=== PATIENT | male | born 1975 | race Caucasian/White ===

== ENCOUNTER → 2020-07-08 13:36 | Outpatient (CLI) | payer BC, SELFPAY ==
[2020-07-09 13:19] LABS: COVID19 Sendout Not Detected (Not Detect)
== END ==
PROVIDERS: Visit Provider Nurse Practitioner
DX: Z11.59 Encounter for screening for other viral diseases (principal)
CPT/HCPCS: 87635

== ENCOUNTER 2020-07-11 10:42 | Day surgery (SDC) | payer BC, SELFPAY ==
[2020-07-04 12:59] VITALS: BMI 35.5
[2020-07-11] VITALS (14 sets, daily range): BP systolic 124–145; BP diastolic 61–89; PULSE 80–104; RESP 12–20; TEMP 36.1–37.1; O2SAT 91–97; BMI 35.2
--- NOTE | 2020-07-11 | DI.RAD.S_ITS ---
PROCEDURE: XR CERVICAL SPINE 2V OR 3V INDICATIONS: C5-6 ACDF TECHNIQUE: Fluoroscopic images were obtained during an operative procedure and submitted for interpretation following the completion of the procedure. COMPARISON: [facility] [place], CR, XR CERVICAL SPINE 2 OR 3 VIEWS, 03/12/2020, 14:57. [facility], MR, MR CERVICAL SPINE WITHOUT CONTRAST, 03/29/2020, 11:30. FINDINGS: These fluoroscopic images were performed for intraoperative localization. On these images, anterior fixation hardware is seen at C5-C6. Please correlate with intraoperative findings. IMPRESSION: Normal intraoperative examination. Dictated by: Palomo Bentley M.D. on 07/11/2020 at 14:07 Approved by: Palomo Bentley M.D. on 07/11/2020 at 14:08
[2020-07-11] MEDS: ACETAMINOPHEN 325 MG TABLET 975 MG PO (11:29)
[2020-07-11] MEDS: LACTATED RINGERS 1,000 ML 42 ML IV ×2 (11:31→14:17)
[2020-07-11] MEDS: CEFAZOLIN 2 GM/100 ML FROZ.PIGGY IV (12:48)
--- NOTE | 2020-07-11 13:12 | SUR.OPER ---
Supine on padded OR bed, head on pillow, shoulders taped down to bed bilaterally by PA, bilateral arms padded and tucked at side, legs uncrossed, safety belt at thigh, tape over blanket over lower legs .
--- NOTE | 2020-07-11 14:36 | P.OP_ITS ---
Operative Date/Time/Diagnoses Date of procedure: 07/11/20 Time of procedure: 13:11 Pre-op diagnosis: 1. C5-6 spinal stenosis 2. 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 C5-6 anterior cervical diskectomy and fusion 2. C5-6 anterior interbody cage placement 3. C5-6 anterior instrumentation with plate and screw placement in C5 and C6 vertebrae 4. Utilization of microsurgical technique and operating microscope Same procedure as scheduled: Yes Indications: Patient has been having chronic neck pain and worsening cervical radiculopathy. Patient failed multiple conservative management with worsening pain weakness and numbness in her upper extremity. Patient has been having difficulty performing activity of daily living. After discussing risks benefits of treatment options, patient elected proceed with surgery. Surgeon: Floresita Jc Barrel Maker: Tracy Jones Click Yes if Unassisted: No Anesthesia Type: General Operative Notes Closure Type: primary Specimen(s): none sent Prosthetic devices, grafts, tissues, transplants, or devices: Globus extend plate, PEEK cage Estimated Blood Loss (mL): 20 Blood products transfused: none Procedure in detail: Patient was seen in the preoperative area. Risks and benefits of the surgery was discussed with the patient. Informed consent was obtained from the patient and placed in the chart. Surgical site was marked. Patient was taken to the operative room. General anesthesia was administered. Prophylactic antibiotic was given to the patient less than 30 min before the incision was made. Patient was placed into a supine position on a radiolucent table. Patient's shoulders were taped down to allow proper C-arm imaging. Anterior cervical area was prepped and draped in a sterile fashion. Time-out was performed at this time. Using lateral C-arm imaging, the level between C5 and C6 was identified and marked on patient's neck. A oblique incision from midline towards medial border of sternocleidomastoid muscle was made. The platysma muscle was incised in line with skin incision. Metzenbaum scissor was used to develop the plane between the medial border of sternocleidomastoid d and the strap muscles medially. The carotid sheath and its contents were identified and protected behind the hand- held retractor during the entire case. The plane between the carotid sheath and strap muscles was developed with Metzenbaum scissors. Dissection was made down to the level of the anterior cervical fascia. Longus colli muscle was incised on the anterior aspect of vertebral bodies bilaterally from C5-C6. Spinal needle w as placed into the C5-6 disc space and confirmed with lateral C-arm imaging. Using microsurgical technique and operative microscope, anterior cervical diskectomy was performed at C5-6 level. This was done by removing the disc material, removing the anterior and posterior osteophytes posterior longitudinal ligaments along with performing bilateral foraminotomies at the C5-6 levels. Patient also was found have extruded disc in the right-sided lateral recess causing additional impingement. The impingement was fully decompressed after the diskectomy was completed. Patient was found to have severe foraminal stenosis. Patient's stenosis was fully decompressed after decompression was completed. After the diskectomy was completed, an anterior interbody cage was obtained. The cage was packed with DBM bone grafting material. One cage each along with the bone grafting material was then packed into the interbody space at C5-6 along with an anterior cervical plate. The cervical plate was stabilized to the C5-C6 vertebrae using screws. After confirming placement of the hardware with AP and lateral C-arm imaging, the screws were locked into the plate using the locking mechanism and torque limiting screwdriver. After the hardware was placed and confirmed with AP and lateral C-arm imaging, the wound was irrigated with sterile normal saline. The platysma muscle and the subcutaneous tissue was closed with 2-0 Vicryl. The skin was closed with 4-0 Monocryl and Steri-Strips. Patient tolerated the procedure well. Patient was transferred recovery room in stable condition. There were no complications. Complications: none Post-operative Condition: stable Disposition: PACU Plan for aftercare: Discharge to home
[2020-07-11] MEDS: HYDROMORPHONE 2 MG INJ IV ×3 (15:06→15:46)
[2020-07-11] MEDS: hydrOXYzine 50 MG/ML INJ 25 MG IM (15:11)
[2020-07-11] MEDS: OXYCODONE IR 5 MG TABLET PO ×2 (15:35→16:03)
== END 2020-07-11 17:23 | disposition home or self-care (01) ==
LOC: OR 10:47 → AC 12:04
PROVIDERS: PCP Family Medicine; Referring Provider Orthopaedic Surgery Orthopaedic Surgery of the Spine; Visit Provider Orthopaedic Surgery Orthopaedic Surgery of the Spine
PROC: (CPT 22551; principal; 2020-07-11 12:15)
DX: M50.122 Cervical disc disorder at C5-C6 level with radiculopathy (principal); M48.02 Spinal stenosis, cervical region
CPT/HCPCS: 22551; 22853; 72040; 76000; C1776; J0330; J0690; J1100; J1170; J2250; J2405; J2704; J3010; J3410